=== PATIENT | female | born 1960 | race Asian ===

== ENCOUNTER 2018-06-19 10:58 | Emergency (ER) | payer OTHER ==
[~2018-06-19] VITALS: Ht 152.4 cm; Wt 68.2 kg
[~2018-06-19 10:58] MED LIST: AMLO5TAB66 PO; ASPI-989 PO; CARV25TA32 PO; FURO20 PO; NITR0.3T SL; SIMV20TA6 PO; TRIA1TAB3 PO; VALS160T2 PO; [UNRECOGNIZED DRUG - CODE] PO
[2018-06-19] MEDS ORDERED: LOSA25TA16 PO (11:06)
[2018-06-19] MEDS ORDERED: METF-960 PO (11:06)
[2018-06-19 11:29] LABS: GLUCOSE,POINT OF CARE 99 MG/DL (70-110)
[2018-06-19] MEDS ORDERED: ACETAMINOPHEN 500 MG TABLET PO ONE (12:15)
[2018-06-19 12:29] LABS: APPEARANCE,URINE CLEAR (CLEAR); BILIRUBIN,URINE NEGATIVE (NEGATIVE); GLUCOSE, URINE (UA) NEGATIVE (NEGATIVE); KETONES,URINE NEGATIVE (NEGATIVE); LEUKOCYTE ESTERASE ,URINE NEGATIVE (NEGATIVE); NITRATE,URINE NEGATIVE (NEGATIVE); OCCULT BLOOD,URINE SMALL (NEGATIVE); PROTEIN,URINE SEE CONFIRM (NEGATIVE); UROBILINOGEN,URINE 0.2 mg/dL (<=1.0)
[2018-06-19 12:39] LABS: SULFOSALICYLIC ACID,URINE 3+ (Negative)
[2018-06-19 12:41] LABS: BACTERIA,URINE Few /HPF (None Seen); SQUAMOUS EPITHELIAL CELL,UR Moderate /LPF (None Seen); YEAST,URINE Rare /HPF (None Seen)
[2018-06-19 13:30] VITALS: BP 165/83
== END 2018-06-19 13:55 | disposition home or self-care (01) ==
LOC: EMS 10:59
DX: M54.5 Low back pain (principal); I11.0 Hypertensive heart disease with heart failure; I50.9 Heart failure, unspecified; E78.00 Pure hypercholesterolemia, unspecified; E11.9 Type 2 diabetes mellitus without complications; F17.210 Nicotine dependence, cigarettes, uncomplicated; Z79.82 Long term (current) use of aspirin; Z79.84 Long term (current) use of oral hypoglycemic drugs
CPT/HCPCS: 99283; 99406